=== PATIENT | female | born 1995 | race American Indian/Alaskan Native ===

== ENCOUNTER 2019-05-12 11:32 | Emergency (ER) | payer SELFPAY ==
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
[2019-05-12 11:59] VITALS: BP 105/68
--- NOTE | 2019-05-12 12:33 | XRay Report ---
Cervical spine-3 views INDICATION: neck pain. COMPARISON: None. IMPRESSION: Normal alignment. No significant discogenic DJD or facet arthropathy. No acute osseous or soft tissue abnormality. Signer Name: Suraj Woods MD Signed: 05/12/2019 12:29 PM Workstation Name: [id number]
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
== END 2019-05-12 14:35 | disposition home or self-care (01) ==
LOC: ED 11:32
DX: S16.1XXA Strain of muscle, fascia and tendon at neck level, initial encounter (principal); S39.012A Strain of muscle, fascia and tendon of lower back, initial encounter; F17.200 Nicotine dependence, unspecified, uncomplicated; Z79.899 Other long term (current) drug therapy; V89.2XXA Person injured in unspecified motor-vehicle accident, traffic, initial encounter; Y93.89 Activity, other specified; Y92.488 Other paved roadways as the place of occurrence of the external cause; Y99.8 Other external cause status
CPT/HCPCS: 72040; 99283